=== PATIENT | female | born 1970 | race African-American/Black ===

== ENCOUNTER 2019-08-02 05:54 | Observation (INO) ==
[2019-07-30 13:25] LABS: Basophils % 0.6 % (0.0-0.8); Eosinophils # 0.4 10*3/uL (0.0-0.87); Hemoglobin 14.6 GM/DL (12.0-16.0); Immature Granulocytes % 0.1 %; Immature Granulocytes Absolute 0.01 #; Lymphocytes # 2.3 10*3/uL (1.4-4.0); Lymphocytes % 32.6 % (21.3-54.2); Mean Corpuscular Volume 90.5 FL (87-102); Mean Platelet Volume 9.6 FL (9.6-12.0); Monocytes % 7.6 % (1.7-12.7); Neutrophils % 54.1 % (38.7-73.9); Platelet Count 297 T/CUMM (130-400); Red Blood Count 4.75 MC/CUMM (3.8-5.5); Red Cell Distribution Width 12.7 % (9.3-17.3)
[2019-07-30 13:40] LABS: Calcium 9.6 MG/DL (8.5-10.1); Osmolality,Calculated 270.8 MOS/KG (273-304)
[2019-08-02] MEDS ORDERED: BUPIVACAINE MPF 0.25% 30 ML VIAL ONE (06:26)
[2019-08-02] MEDS ORDERED: LIDOCAINE 1%/EPI INJ 20 ML VIAL ONE (06:26)
[2019-08-02] MEDS ORDERED: MIDAZOLAM 2 MG/2 ML VIAL ONE (06:27)
[2019-08-02] MEDS ORDERED: DEXAMETHASONE 4 MG/1 ML VIAL ONE (06:27)
[2019-08-02] MEDS ORDERED: fentaNYL 100 MCG/2 ML VIAL ONE (06:27)
[2019-08-02] MEDS ORDERED: BUPIVACAINE MPF 0.5% /EPI 30 ML VIAL ONE (06:27)
[2019-08-02] MEDS ORDERED: ceFAZolin 1,000 MG in SYRINGE 1 EACH IV ONE (06:30)
[2019-08-02] MEDS: LACTATED RINGERS 1,000 ML IV SCH ×2 (06:38→10:56)
[2019-08-02] MEDS ORDERED: ceFAZolin 1,000 MG VIAL ONE (06:41)
[2019-08-02] MEDS ORDERED: propofoL 200 MG/20 ML VIAL IV ONE (08:20)
[2019-08-02] MEDS ORDERED: NEOSTIGMINE 10 MG/10 ML VIAL ONE (08:21)
[2019-08-02] MEDS ORDERED: LIDOCAINE 2% 5 ML VIAL ONE (08:21)
[2019-08-02] MEDS ORDERED: PHENYLEPHRINE 1 MG/10 ML SYRINGE IV ONE (08:21)
[2019-08-02] MEDS ORDERED: SEVOFLURANE 1 UNIT/15 MINUTE INH ONE (08:21)
[2019-08-02] MEDS ORDERED: GLYCOPYRROLATE 0.4 MG/2 ML VIAL ONE ×2 (08:21)
[2019-08-02] MEDS ORDERED: ROCURONIUM 100 MG/10 ML VIAL IV ONE (08:21)
[2019-08-02 11:07] LABS: Troponin I < 0.015 NG/ML (0.00-0.045)
[2019-08-02 12:07] LABS: Free T4 (Free Thyroxine) 1.85 NG/DL (0.76-1.46); Thyroid Stimulating Hormone 0.037 uIU/ml (0.358-3.74)
[2019-08-02 12:11] LABS: Risk Ratio 2.18; VLDL CHOLESTEROL 9.2 MG/DL
[2019-08-02] MEDS ORDERED: DOCUSATE SODIUM 100 MG CAPSULE PO PRN (12:28)
[2019-08-02] MEDS ORDERED: ONDANSETRON 4 MG/2 ML VIAL IV PRN (12:28)
[2019-08-02] MEDS ORDERED: SIMETHICONE CHEW 125 MG TABLET PO PRN (12:28)
[2019-08-02] MEDS ORDERED: hydrALAZINE 20 MG/1 ML VIAL IV PRN (12:28)
[2019-08-02] MEDS ORDERED: ALUMINUM/MAGNES/SIMETH MAX STR 30 ML UDCUP PO PRN (12:28)
[2019-08-02] MEDS ORDERED: CALCIUM CARBONATE CHEW 500 MG TABLET PO PRN (12:28)
[2019-08-02] MEDS ORDERED: NICOTINE 21 MG/24 HR PATCH TRANSDERM PRN (12:28)
[2019-08-02] MEDS ORDERED: ACETAMINOPHEN 325 MG TABLET PO PRN (12:28)
[2019-08-02] MEDS ORDERED: BISACODYL 5 MG TABLET PO PRN (12:28)
[2019-08-02] MEDS ORDERED: LACTULOSE 20 GM/30 ML UDCUP PO PRN (12:28)
[2019-08-02] MEDS ORDERED: chlordiazePOXIDE 10 MG CAPSULE PO PRN (12:31)
[2019-08-02 19:52] LABS: Barbiturates Screen,Urine Negative (Negative); Benzodiazepines Screen,Urine Positive (Negative); Cannabinoid Screen,Urine Negative (Negative); Opiate Screen,Urine Negative (Negative); Phencyclidine Screen,Urine Negative (Negative)
[2019-08-02] MEDS ORDERED: hydrOXYzine HCL 25 MG TABLET PO SCH (21:00)
[2019-08-02] MEDS: FOLIC ACID 0.4 MG TABLET PO SCH (21:25)
[2019-08-03 06:23] LABS: Basophils % 0.2 % (0.0-0.8); Eosinophils % 0.1 % (0.00-10.9); Hematocrit 38.1 VOL% (35.7-47.0); Hemoglobin 12.6 GM/DL (12.0-16.0); Immature Granulocytes % 0.4 %; Immature Granulocytes Absolute 0.05 #; Lymphocytes # 1.6 10*3/uL (1.4-4.0); Lymphocytes % 12.9 % (21.3-54.2); Mean Corpuscular HGB Conc 33.1 GM/DL (32-36); Mean Corpuscular Volume 93.6 FL (87-102); Mean Platelet Volume 10.6 FL (9.6-12.0); Monocytes % 8.4 % (1.7-12.7); Platelet Count 288 T/CUMM (130-400); Red Blood Count 4.07 MC/CUMM (3.8-5.5); Red Cell Distribution Width 12.9 % (9.3-17.3); White Blood Count 12.3 T/CUMM (4-12)
[2019-08-03] MEDS ORDERED: LEVOTHYROXINE 75 MCG TABLET PO SCH (06:30)
[2019-08-03 07:14] LABS: Alanine Aminotransferase 23 U/L (13-56); Albumin 2.7 G/DL (3.4-5.0); Alkaline Phosphatase 113 U/L (45-117); Aspartate Amino Transferase 15 U/L (0-37); Bilirubin,Total < 0.39 MG/DL (0.2-1.0); Blood Urea Nitrogen 17 MG/DL (7-18); Calcium 8.5 MG/DL (8.5-10.1); Estimated Glom Filtration Rate 88 ML/MIN; Glucose 117 MG/DL (74-106); Osmolality,Calculated 275.8 MOS/KG (273-304); Total Protein 6.3 G/DL (6.4-8.3)
[2019-08-03 08:19] VITALS: BP 93/44
[2019-08-03] MEDS ORDERED: THIAMINE 100 MG TABLET PO SCH (09:00)
[2019-08-03] MEDS ORDERED: PANTOPRAZOLE 40 MG TABLET PO SCH (09:00)
[2019-08-03] MEDS: hydroCHLOROthiazide 12.5 MG CAPSULE PO SCH ×2 (09:39→09:40)
[2019-08-03] MEDS: FOLIC ACID 0.4 MG TABLET PO SCH (09:39)
== END 2019-08-03 11:17 | disposition home or self-care (01) ==
LOC: N.OR 05:54 → N.SDSINP 05:54 → N.3E 05:54 → N.SDSINP 05:55 → N.3E 13:04
PROVIDERS: ADMIT Surgery; ATTEND Surgery